=== PATIENT | female | born 1985 | race Caucasian/White ===

== ENCOUNTER 2017-10-14 02:45 | Inpatient (IN) | payer BC ==
[2017-10-14 02:51] VITALS: BMI 34.0
[2017-10-14] MEDS ORDERED: ACETAMINOPHEN 1000 MG/100 ML VIAL (NON FORMULARY) IVPB ONE (02:59)
[2017-10-14] MEDS ORDERED: SODIUM CHLORIDE 1,000 ML IV ONE (02:59)
[2017-10-14] MEDS ORDERED: ACETAMINOPHEN INJECTION 100 ML IVPB ONE (03:00)
--- NOTE | 2017-10-14 03:00 | PDOC ---
History of Present Illness - General Chief Complaint: Headache Stated Complaint: RIBERA Time Seen by Provider: 10/14/17 02:52 History Source: Patient Exam Limitations: No Limitations - History of Present Illness Initial Comments: 10/14/17 03:35 This is a 31-year-old female who comes in complaining of severe headache 2 days. Patient also was febrile here in the emergency room to 101.6. Patient denies any nausea vomiting or diarrhea. Patient denies any chest pain shortness of breath cough congestion. Patient denies any urinary complaints. Patient has been taking Tylenol Motrin for the headache without relief. Patient is otherwise healthy. Patient was at an urgent care center earlier today and diagnosed with sinusitis and given amoxicillin. Patient has taken one dose of her amoxicillin. PAST MEDICAL HISTORY: no significant history PAST SURGICAL HISTORY: no significant history FAMILY HISTORY: no pertinant history SOCIAL HISTORY: Pt lives with family and is employed. MEDICATIONS: reviewed ALLERGIES: As per nursing notes Review of Systems General: No fevers or chills, no weakness, no weight loss HEENT: No change in vision. No sore throat,. No ear pain CardioVascular: No chest pain or shortness of breath Respiratory:No cough, or wheezing. Gastrointestinal: no nausea, vomitting, diarrhea or constipation, No rectal bleeding Genitourinary: No dysuria, hematuria, or frequency Musculoskeletal: No joint or muscle pain or swelling Neurologic: No headache, vertigo, dizziness or loss of consciousness Psychiatric: nor depression Skin: No rashes or easy bruising Endocrine: no increased thirst or abnormal weight change Allergic: no skin or latex allergy All other systems reviewed and normal Exam: General: Well-nourished well-developed individual, no acute distress HEENT: Throat: Normal, tonsils normal, no erythema or exudate, There is some mild tenderness on palpation of the frontal sinuses Neck: Supple, no meningeal signs, no lymphadenopathy Eyes::Pupils equal reactive and round, extraocular motion intact Chest: Nontender to palpation Cardiac: S1-S2 normal, regular rate and rhythm, no murmurs rubs or gallops Respiratory: Lungs clear to auscultation bilateral Abdomen: Soft, nondistended, normal bowel sounds, nontender to palpation diffusely Extremities: Warm, dry, no cyanosis, clubbing, or edema Skin: No rashes Neuro: Alert and oriented x3, CN II - XII intact, nonfocal exam with normal strength, normal sensation, normal reflexes, normal gait, Psych: Normal mood and affect Medical decision-making This is a 31-year-old female with headache and fever. Patient does have some tenderness over her frontal sinuses. We'll obtain CT of sinuses and head as well as blood cultures and CBC and comp. We will reassess and the reevaluate. 05:00 Patient is had her CT. Headache is still present with minimal improvement after the Tylenol. Patient has no meningeal signs. Patient may need LP if head CT is negative and she does not improve 06:30 Patient remains unchanged head CT is negative for any acute pathology including normal sinuses so there is no sinusitis that can account for her symptoms. Will obtain LP as patient continues to have a headache Patient's white count was normal the rest of her lab was normal with the exception of a very mild elevation of her LFTs. 10/14/17 07:04 Procedure note lumbar puncture Patient was positioned in the lateral position landmarks were identified and area was cleaned with Betadine Lumbar puncture was performed using sterile technique without difficulty Opening pressure was greater than 56 Total of approximately 10 mL of spinal fluid was obtained Fluid was clear and colorless Patient tolerated procedure well area was cleaned and it was applied and patient was told to stop a flat on her back. Care of this patient was transferred to Dr. Ansari at 7 AM. Patient will be admitted to an inpatient 10/14/17 07:07 Case discussed in detail with oncoming Emergency Physician including history, physical exam and ancillary studies. Oncoming Emergency Physician has assumed care for the patient and will complete the evaluation and treatment. Patient is aware of the plan. Pt is clinically unchanged and stable. Past History - Past Medical History Allergies/Adverse Reactions: Allergies Allergy/AdvReac Type Severity Reaction Status Date / Time No Known Allergies Allergy Unverified 10/14/17 02:47 Home Medications: Ambulatory Orders Amoxicillin - [Amoxicillin 500mg Capsule -] 500 mg PO BID 10/14/17 Acetaminophen/Caffeine/Butalb [Fioricet -] 1 tablet PO Q6H PRN #28 tablet MDD 4 10/15/17 Famotidine [Pepcid -] 20 mg PO BID tablet 10/15/17 COPD: No - Suicide/Smoking/Psychosocial Hx Smoking History: Never smoked Have you smoked in the past 12 months: No Number of Cigarettes Smoked Daily: 0 Information on smoking cessation initiated: No Hx Alcohol Use: No Drug/Substance Use Hx: No Substance Use Type: None *Physical Exam - Vital Signs Last Vital Signs Temp Pulse Resp BP Pulse Ox 101.6 F H 110 H 15 151/100 98 10/14/17 02:46 10/14/17 02:46 10/14/17 02:46 10/14/17 02:46 10/14/17 02:46 ED Treatment Course - LABORATORY CBC & Chemistry Diagram: 10/15/17 07:45 10/15/17 07:45 *DC/Admit/Observation/Transfer Diagnosis at time of Disposition: Meningitis Headache Qualifiers: Headache type: unspecified Headache chronicity pattern: acute headache Intractability: not intractable Qualified Code(s): R51 - Headache Fever Qualifiers: Fever type: unspecified Qualified Code(s): R50.9 - Fever, unspecified - Discharge Dispostion Condition at time of disposition: Improved - Prescriptions - Referrals - Patient Instructions - Post Discharge Activity
[2017-10-14] MEDS ORDERED: PIPERACILLIN/TAZOB 4.5 GM 4.5 GM in DEXTROSE 5%-WATER 100 ML IVPB ONE (03:03)
[2017-10-14] MEDS ORDERED: PIPERACILLIN/TAZOBACTAM 4.5 GM VIAL IVPB ONE (03:19)
[2017-10-14 03:51] LABS: BASO % 0.5 % (0-2.0); EOS % 1.1 % (0-4.5); HEMOGLOBIN 14.9 GM/dL (10.7-15.3); LYMPH % 15.6 % (8-40); MCH 29.1 pg (25.7-33.7); MCHC 34.7 g/dl (32.0-36.0); MEAN CELL VOLUME 83.7 fl (80-96); MEAN PLT VOLUME 7.5 fl (7.5-11.1); MONO % 11.6 % (3.8-10.2); NEUT % 71.2 % (42.8-82.8); PLATELET COUNT 220 K/MM3 (134-434); RBC 5.14 M/mm3 (3.60-5.2); RDW 13.4 % (11.6-15.6); WHITE BLOOD COUNT 6.5 K/mm3 (4.0-10.0)
[2017-10-14 04:00] LABS: URINE APPEARANCE SLCLOUDY; URINE BILIRUBIN NEGATIVE (<2.0 mg/dL); URINE COLOR DKYELLOW; URINE GLUCOSE (UA) NEGATIVE (NEGATIVE); URINE KETONE TRACE (NEGATIVE); URINE LEUK ESTERASE NEGATIVE (NEGATIVE); URINE NITRITE NEGATIVE (NEGATIVE); URINE UROBILINOGEN 4.0 E.U/dl mg/dL (0.2-1.0)
[2017-10-14 04:01] LABS: URINE PROTEIN 1+ (NEGATIVE)
[2017-10-14 04:02] LABS: EPI CELLS FEW /HPF (FEW)
[2017-10-14 05:25] LABS: ALBUMIN 3.5 g/dl (3.4-5.0); ALK PHOS 95 U/L (45-117); ANION GAP 8 (8-16); BILIRUBIN,TOTAL 0.4 mg/dL (0.2-1.0); BLOOD UREA NITROGEN 9 mg/dL (7-18); CALCIUM 7.9 mg/dL (8.5-10.1); CHLORIDE 104 mmol/L (98-107); CO2 26 mmol/L (21-32); CREATININE 0.6 mg/dL (0.55-1.02); GLUCOSE,RANDOM 101 mg/dL (74-106); SGPT/ALT 83 U/L (12-78); SODIUM 138 mmol/L (136-145); TOT PROT 7.1 g/dl (6.4-8.2)
[2017-10-14 05:41] LABS: POTASSIUM 4.2 mmol/L (3.5-5.1)
[2017-10-14 05:42] LABS: SGOT/AST 68 U/L (15-37)
[2017-10-14] MEDS ORDERED: KETOROLAC TROMETHAMINE 30 MG/1 ML VIAL IVPUSH ONE (06:37)
[2017-10-14] MEDS ORDERED: KETOROLAC TROMETHAMINE 30 MG/1 ML VIAL ONE (06:38)
[2017-10-14] MEDS ORDERED: CEFTRIAXONE 2,000 MG in DEXTROSE 5%-WATER - 50 ML IVPB ONE (07:06)
--- NOTE | 2017-10-14 07:15 | PDOC ---
*Physical Exam - Vital Signs Last Vital Signs Temp Pulse Resp BP Pulse Ox 97.7 F 88 14 140/85 98 10/14/17 07:06 10/14/17 07:06 10/14/17 07:06 10/14/17 07:06 10/14/17 07:06 ED Treatment Course - LABORATORY CBC & Chemistry Diagram: 10/14/17 03:18 10/14/17 03:18 - ADDITIONAL ORDERS Additional order review: Laboratory Results 10/14/17 10/14/17 10/14/17 03:18 03:18 03:18 Sodium 138 Potassium 4.2 Chloride 104 Carbon Dioxide 26 Anion Gap 8 BUN 9 Creatinine 0.6 Creat Clearance w eGFR > 60 Random Glucose 101 Calcium 7.9 L Total Bilirubin 0.4 AST 68 H ALT 83 H Alkaline Phosphatase 95 Total Protein 7.1 Albumin 3.5 Urine Color Dkyellow Urine Appearance Slcloudy Urine pH 6.0 Ur Specific [place] 1.027 Urine Protein 1+ H Urine Glucose (UA) Negative Urine Ketones Trace H Urine Blood 1+ H Urine Nitrite Negative Urine Bilirubin Negative Urine Urobilinogen 4.0 e.u/dl H Ur Leukocyte Esterase Negative Urine WBC (Auto) 2 Urine RBC (Auto) 13 Ur Epithelial Cells Few Urine HCG, Qual Negative 10/14/17 03:18 RBC 5.14 MCV 83.7 MCHC 34.7 RDW 13.4 MPV 7.5 Neutrophils % 71.2 Lymphocytes % 15.6 Monocytes % 11.6 H Eosinophils % 1.1 Basophils % 0.5 - Medications Given in the ED: ED Medications Discontinued Medications Generic Name Dose Route Start Last Admin Trade Name Tamiko PRN Reason Stop Dose Admin Acetaminophen 1,000 mg 10/14/17 02:59 10/14/17 03:17 Ofirmev Injection - IVPB 10/14/17 03:00 1,000 mg ONCE ONE Administration Sodium Chloride 1,000 mls @ 1,000 mls/hr 10/14/17 02:59 10/14/17 03:10 Normal Saline - IV 10/14/17 03:58 1,000 mls/hr .Q1H ONE Administration Piperacillin Sod/Tazobactam 100 mls @ 200 mls/hr 10/14/17 03:03 10/14/17 03: 10 Sod 4.5 gm/ Dextrose IVPB 10/14/17 03:32 200 mls/hr ONCE ONE Administration Protocol Ketorolac Tromethamine 30 mg 10/14/17 06:37 10/14/17 07:13 Toradol Injection - IVPUSH 10/14/17 06:38 30 mg ONCE ONE Administration Medical Decision Making - Medical Decision Making 10/14/17 07:24 Pt signed out to me by Dr. Nation at shift change. She presented with 101.6 fever and headache, had extremely high opening pressure on LP, fluid was clear. Suspected meningitis, pending admission to hospitalist. Case d/w Dr. Grossman. Will evaluate patient. 10/14/17 07:55 Pt accepted by hospitalist for admission. *DC/Admit/Observation/Transfer Diagnosis at time of Disposition: Meningitis Headache Qualifiers: Headache type: unspecified Headache chronicity pattern: acute headache Intractability: not intractable Qualified Code(s): R51 - Headache Fever Qualifiers: Fever type: unspecified Qualified Code(s): R50.9 - Fever, unspecified - Discharge Dispostion Condition at time of disposition: Stable Decision to Admit order: Yes - Referrals - Patient Instructions - Post Discharge Activity
[2017-10-14] MEDS ORDERED: cefTRIAXone SODIUM 1 GM VIAL ONE (07:40)
[2017-10-14 08:59] LABS: CSF APPEARANCE CLEAR; CSF COLOR COLORLESS; CSF WBC 1
--- NOTE | 2017-10-14 09:10 | HP ---
CHIEF COMPLAINT: headache and fever PCP: none HISTORY OF PRESENT ILLNESS: Patient is a 31 y/o obese female with a past medical history of migraines. Patient reports ongoing headache for the past 2 days. She described the pain a squeezing sensation to the right side of the head. She first attributed to these symptoms to her sinus and was evaluated at a local urgent care and was started on amoxicillin. Patient reports taking amoxicillin for 24 hours no significant relief. Patient reports the headache persisted yesterday and worsened during positional changes. She was re- evaluated at urgent care and was referred to the emergency department for further evaluation. 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[employer], ( ) Smoking:none Alcohol:none Drugs: none Family History: father : PE mother: alive and well Allergies No Known Allergies Allergy (Unverified 10/14/17 02:47) HOME MEDICATIONS: Home Medications Medication Instructions Recorded Amoxicillin - [Amoxicillin 500mg 500 mg PO BID 10/14/17 Capsule -] REVIEW OF SYSTEMS CONSTITUTIONAL: present: fever Absent: chills, diaphoresis, generalized weakness, malaise, loss of appetite, weight change HEENT: Absent: rhinorrhea, nasal congestion, throat pain, throat swelling, difficulty swallowing, mouth swelling, ear pain, eye pain, visual changes CARDIOVASCULAR: Absent: chest pain, syncope, palpitations, irregular heart rate, lightheadedness , peripheral edema RESPIRATORY: Absent: cough, shortness of breath, dyspnea with exertion, orthopnea, wheezing, stridor, hemoptysis GASTROINTESTINAL: Absent: abdominal pain, abdominal distension, nausea, vomiting, diarrhea, constipation, melena, hematochezia GENITOURINARY: Absent: dysuria, frequency, urgency, hesitancy, hematuria, flank pain, genital pain MUSCULOSKELETAL: Absent: myalgia, arthralgia, joint swelling, back pain, neck pain SKIN: Absent: rash, itching, pallor HEMATOLOGIC/IMMUNOLOGIC: Absent: easy bleeding, easy bruising, lymphadenopathy, frequent infections ENDOCRINE: Absent: unexplained weight gain, unexplained weight loss, heat intolerance, cold intolerance NEUROLOGIC: Present: headache Absent: focal weakness or paresthesias, dizziness, unsteady gait, seizure, mental status changes, bladder or bowel incontinence PSYCHIATRIC: Absent: anxiety, depression, suicidal or homicidal ideation, hallucinations. PHYSICAL EXAMINATION Vital Signs - 24 hr 10/14/17 10/14/17 02:46 07:06 Temperature 101.6 F H 97.7 F Pulse Rate 110 H Pulse Rate [ 88 Right Radial] Respiratory 15 14 Rate Blood Pressure 151/100 Blood Pressure 140/85 [Left Arm] O2 Sat by Pulse 98 98 Oximetry (%) GENERAL: Awake, alert, and fully oriented, in no acute distress. HEAD: Normal with no signs of trauma. EYES: Pupils equal, round and reactive to light, extraocular movements intact, sclera anicteric, conjunctiva clear. No lid lag. EARS, NOSE, THROAT: Ears normal, nares patent, oropharynx clear without exudates. Moist mucous membranes. NECK: Normal range of motion, supple without lymphadenopathy, JVD, or masses. LUNGS: Breath sounds equal, clear to auscultation bilaterally. No wheezes, and no crackles. No accessory muscle use. HEART: Regular rate and rhythm, normal S1 and S2 without murmur, rub or gallop. ABDOMEN: Soft, nontender, not distended, normoactive bowel sounds, no guarding, no rebound, no masses. No hepatomegaly or splenomegaly. MUSCULOSKELETAL: Normal range of motion at all joints. No bony deformities or tenderness. No CVA tenderness. UPPER EXTREMITIES: 2+ pulses, warm, well-perfused. No cyanosis. No clubbing. No peripheral edema. LOWER EXTREMITIES: 2+ pulses, warm, well-perfused. No calf tenderness. No peripheral edema. NEUROLOGICAL: negative kernig's sign, negative brudzinski, Cranial nerves II- XII intact. Normal speech. Normal gait. PSYCHIATRIC: Cooperative. Good eye contact. Appropriate mood and affect. SKIN: Warm, dry, normal turgor, no rashes or lesions noted, normal capillary refill. Laboratory Results - last 24 hr 10/14/17 10/14/17 10/14/17 03:18 03:18 03:18 WBC 6.5 RBC 5.14 Hgb 14.9 Hct 43.0 MCV 83.7 MCH 29.1 MCHC 34.7 RDW 13.4 Plt Count 220 MPV 7.5 Neutrophils % 71.2 Lymphocytes % 15.6 Monocytes % 11.6 H Eosinophils % 1.1 Basophils % 0.5 Sodium 138 Potassium 4.2 Chloride 104 Carbon Dioxide 26 Anion Gap 8 BUN 9 Creatinine 0.6 Creat Clearance w eGFR > 60 Random Glucose 101 Calcium 7.9 L Total Bilirubin 0.4 AST 68 H ALT 83 H Alkaline Phosphatase 95 Total Protein 7.1 Albumin 3.5 Urine Color Dkyellow Urine Appearance Slcloudy Urine pH 6.0 Ur Specific [place] 1.027 Urine Protein 1+ H Urine Glucose (UA) Negative Urine Ketones Trace H Urine Blood 1+ H Urine Nitrite Negative Urine Bilirubin Negative Urine Urobilinogen 4.0 e.u/dl H Ur Leukocyte Esterase Negative Urine WBC (Auto) 2 Urine RBC (Auto) 13 Ur Epithelial Cells Few Urine HCG, Qual CSF Appearance CSF Color CSF WBC CSF RBC CSF Neutrophils CSF Lymphocytes CSF Eosinophils CSF Basophils CSF Macrophages CSF Plasma Cells CSF Diff Comment CSF Comment 10/14/17 10/14/17 03:18 07:07 WBC RBC Hgb Hct MCV MCH MCHC RDW Plt Count MPV Neutrophils % Lymphocytes % Monocytes % Eosinophils % Basophils % Sodium Potassium Chloride Carbon Dioxide Anion Gap BUN Creatinine Creat Clearance w eGFR Random Glucose Calcium Total Bilirubin AST ALT Alkaline Phosphatase Total Protein Albumin Urine Color Urine Appearance Urine pH Ur Specific [place] Urine Protein Urine Glucose (UA) Urine Ketones Urine Blood Urine Nitrite Urine Bilirubin Urine Urobilinogen Ur Leukocyte Esterase Urine WBC (Auto) Urine RBC (Auto) Ur Epithelial Cells Urine HCG, Qual Negative CSF Appearance Clear CSF Color Colorless CSF WBC 1 CSF RBC 0 CSF Neutrophils No Result Required. CSF Lymphocytes No Result Required. CSF Eosinophils No Result Required. CSF Basophils No Result Required. CSF Macrophages No Result Required. CSF Plasma Cells No Result Required. CSF Diff Comment No Result Required. CSF Comment No Result Required. ASSESSMENT/PLAN: 1) neuro r/o meningitis - LP completed in ED, elevated opening pressures, pending cultures, rocephin, zosyn, given this AM - no leukocytois patient is afebrile, monitor cbc and fever curve - pending urine and blood cultures - lyme's titers ordered - appreciate neurology and ID consult f/e/n - regular diet - replete lytes prn ppx - oob - scd dispo: pt requires inpatient admission Visit type - Emergency Visit Emergency Visit: Yes ED Registration Date: 10/14/17 Care time: The patient presented to the Emergency Department on the above date and was hospitalized for further evaluation of their emergent condition. - New Patient This patient is new to me today: Yes Date on this admission: 10/15/17 - Critical Care Critical Care patient: No Hospitalist Screening - Colonoscopy Questionnaire Colonoscopy Questionnaire: Colonoscopy Questionnaire - Patient: 50 - 75 years old and never had a screening colonoscopy: No History of colon or rectal polyps, or CA: No History of IBD, Crohn's disease or UC: No History of abdominal radiation therapy as a child: No - Relative: 1 with colon or rectal CA, or polyps at age 60 or younger: No Colon or rectal CA diagnosed at age 45 or younger: No Multiple relatives with colon or rectal CA: No - Outcome: Screening Result: Negative Screen
[2017-10-14] MEDS ORDERED: ACETAMINOPHEN 325 MG TABLET (FP) PO PRN (09:44)
[2017-10-14 09:52] LABS: GLUCOSE,CSF 60 mg/dL (50-80)
[2017-10-14] MEDS: FAMOTIDINE 20 MG TABLET PO SCH ×2 (10:46→21:35)
[2017-10-14] MEDS ORDERED: ONDANSETRON 4 MG/2 ML VIAL IVPUSH PRN (10:57)
--- NOTE | 2017-10-14 18:03 | CONSULT ---
Consult - text type - Consultation Consultation Note: Neurology History of Present Illness Chief Complaint: Headache Stated Complaint: RIBERA - History of Present Illness Initial Comments: This is a 31-year-old female who comes in complaining of severe headache 2 days. Patient also was febrile here in the emergency room to 101.6. Patient denied any nausea vomiting or diarrhea. Patient denies any chest pain shortness of breath cough congestion. Patient denies any urinary complaints. Patient has been taking Tylenol Motrin for the headache without relief. Patient is otherwise healthy. She complainted of neck and with headache and fever there was concern for meningitis. ER contacted me in AM. LP completed and 1 WBC ( essentially normal), normal protein and normal glucose in CSF. She was given emperic abx but does not seem consistent with meningitis. Is moving her neck without stiffness but does have some discomfort. Photophobia also noted. Possibly migranous though no past history of migraines. CT head completed and no acute changes. Discussed MRI brain with her but patient will defer as CT without acute changes and no deficits. PAST MEDICAL HISTORY: no significant history PAST SURGICAL HISTORY: no significant history FAMILY HISTORY: no pertinant history SOCIAL HISTORY: Pt lives with family and is employed. MEDICATIONS: reviewed ALLERGIES: As per nursing notes Review of Systems General: fevers ongoing, no weakness, no weight loss HEENT: No change in vision. No sore throat,. No ear pain CardioVascular: No chest pain or shortness of breath Respiratory:No cough, or wheezing. Gastrointestinal: no nausea, vomitting, diarrhea or constipation, No rectal bleeding Genitourinary: No dysuria, hematuria, or frequency Musculoskeletal: No joint or muscle pain or swelling Neurologic: Active headache, no vertigo, dizziness or loss of consciousness Psychiatric: nor depression Skin: No rashes or easy bruising Endocrine: no increased thirst or abnormal weight change Allergic: no skin or latex allergy All other systems reviewed and normal Vital Signs Period Temp Pulse Resp BP Sys/Becerra Pulse Ox Last 24 Hr 97.7 F-101.6 F 85-110 14-18 137-169/82-100 97-98 Exam: General: Well-nourished well-developed individual, no acute distress HEENT: Throat: Normal, tonsils normal, no erythema or exudate, There is some mild tenderness on palpation of the frontal sinuses Neck: Supple, no meningeal signs, no lymphadenopathy Eyes::Pupils equal reactive and round, extraocular motion intact Chest: Nontender to palpation Cardiac: S1-S2 normal, regular rate and rhythm, no murmurs rubs or gallops Respiratory: Lungs clear to auscultation bilateral Abdomen: Soft, nondistended, normal bowel sounds, nontender to palpation diffusely Extremities: Warm, dry, no cyanosis, clubbing, or edema Skin: No rashes Neuro: Alert and oriented x3, CN II - XII intact, nonfocal exam with normal strength, normal sensation, normal reflexes, normal gait, photophobia noted Psych: Normal mood and affect CBCD WBC 6.5 K/mm3 (4.0-10.0) 10/14/17 03:18 RBC 5.14 M/mm3 (3.60-5.2) 10/14/17 03:18 Hgb 14.9 GM/dL (10.7-15.3) 10/14/17 03:18 Hct 43.0 % (32.4-45.2) 10/14/17 03:18 MCV 83.7 fl (80-96) 10/14/17 03:18 MCHC 34.7 g/dl (32.0-36.0) 10/14/17 03:18 RDW 13.4 % (11.6-15.6) 10/14/17 03:18 Plt Count 220 K/MM3 (134-434) 10/14/17 03:18 MPV 7.5 fl (7.5-11.1) 10/14/17 03:18 CMP Sodium 138 mmol/L (136-145) 10/14/17 03:18 Potassium 4.2 mmol/L (3.5-5.1) 10/14/17 03:18 Chloride 104 mmol/L (98-107) 10/14/17 03:18 Carbon Dioxide 26 mmol/L (21-32) 10/14/17 03:18 Anion Gap 8 (8-16) 10/14/17 03:18 BUN 9 mg/dL (7-18) 10/14/17 03:18 Creatinine 0.6 mg/dL (0.55-1.02) 10/14/17 03:18 Creat Clearance w eGFR > 60 (>60) 10/14/17 03:18 Calcium 7.9 mg/dL (8.5-10.1) L 10/14/17 03:18 Total Bilirubin 0.4 mg/dL (0.2-1.0) 10/14/17 03:18 AST 68 U/L (15-37) H 10/14/17 03:18 ALT 83 U/L (12-78) H 10/14/17 03:18 Alkaline Phosphatase 95 U/L (45-117) 10/14/17 03:18 Total Protein 7.1 g/dl (6.4-8.2) 10/14/17 03:18 Albumin 3.5 g/dl (3.4-5.0) 10/14/17 03:18 CT head reviewed CSF reviewed Medical decision-making 31-year-old female who comes in complaining of severe headache 2 days. Patient also was febrile here in the emergency room to 101.6. She complainted of neck and with headache and fever there was concern for meningitis. ER contacted me in AM. LP completed and 1 WBC (essentially normal), normal protein and normal glucose in CSF. She was given emperic abx but does not seem consistent with meningitis. Is moving her neck without stiffness but does have some discomfort. Photophobia also noted. Possibly migranous though no past history of migraines. CT head completed and no acute changes. Discussed MRI brain with her but patient will defer as CT without acute changes and no deficits. D/ruth tyenol and added fioricet for possible migraine. Hydration and rest recommended. Avoid bright lights and loud room. Continue PO/IV hydration. ID consulted. No further rec'd at this time.
--- NOTE | 2017-10-14 19:30 | PN ---
Progress Note (short form) - Note Progress Note: ID Consult dictated No evidence for meningitis Observe off antibiotics D/C isolation Outpatient follow up
[2017-10-14] MEDS: ACETAMINOPHEN/CAFFEINE/BUTALBITAL 1 TAB PO PRN (21:35)
[2017-10-15] MEDS: ACETAMINOPHEN/CAFFEINE/BUTALBITAL 1 TAB PO PRN (04:00)
[2017-10-15 06:56] VITALS: BP 153/90; PULSE 100; TEMP 99.7
[2017-10-15 08:08] LABS: BASO % 0.8 % (0-2.0); EOS % 0.5 % (0-4.5); HEMATOCRIT 43.1 % (32.4-45.2); HEMOGLOBIN 14.5 GM/dl (10.7-15.3); LYMPH % 18.6 % (8-40); MCH 28.3 pg (25.7-33.7); MCHC 33.7 g/dl (32.0-36.0); MEAN CELL VOLUME 83.9 fl (80-96); MEAN PLT VOLUME 7.1 fl (7.5-11.1); MONO % 8.8 % (3.8-10.2); NEUT % 71.3 % (42.8-82.8); PLATELET COUNT 267 K/MM3 (134-434); RBC 5.14 M/mm3 (3.60-5.2); RDW 12.7 % (11.6-15.6); WHITE BLOOD COUNT 9.2 K/mm3 (4.0-10.8)
[2017-10-15 08:28] LABS: ALBUMIN 3.5 g/dl (3.5-5.0); ALK PHOS 74 U/L (32-92); ANION GAP 7 (8-16); BILIRUBIN,TOTAL 0.5 mg/dl (0.2-1.0); BLOOD UREA NITROGEN 7 mg/dl (7-18); CALCIUM 8.4 mg/dl (8.4-10.2); CHLORIDE 102 mmol/L (98-107); CO2 26 mmol/L (22-28); GLUCOSE,RANDOM 104 mg/dl (74-106); MAGNESIUM 2.1 mg/dL (1.8-2.4); PHOSPHOROUS 3.5 mg/dl (2.5-4.6); POTASSIUM 3.8 mmol/L (3.5-5.1); SGOT/AST 41 U/L (10-42); SGPT/ALT 66 U/L (10-40); SODIUM 135 mmol/L (136-145); TOT PROT 6.6 g/dl (6.4-8.3)
[2017-10-15 08:34] LABS: CREATININE < 0.8 mg/dl (0.6-1.3)
[2017-10-15] MEDS ORDERED: MAGNESIUM SULF 50% (8.12 MEQ/2 ML-1 GM VIAL) IVPB ONE (09:00)
--- NOTE | 2017-10-15 09:01 | DS ---
Physical Exam: SUBJECTIVE: Patient seen and examined, denies any tactile fevers, reports resolution of headache OBJECTIVE: Patient is a 31 y/o obese female with a past medical history of migraines. Patient reports ongoing headache for the past 2 days. She described the pain a squeezing sensation to the right side of the head. She first attributed to these symptoms to her sinus and was evaluated at a local urgent care and was started on amoxicillin. Patient reports taking amoxicillin for 24 hours no significant relief. Patient reports the headache persisted yesterday and worsened during positional changes. She was re-evaluated at urgent care and was referred to the emergency department for further evaluation. ER course was notable for: (1)tmax of 101.6 (2)LP completed in ED by ED physician, opening pressure 56 (3)wbc 6.5 Vital Signs Period Temp Pulse Resp BP Sys/Becerra Pulse Ox Last 24 Hr 98.3 F-99.7 F 85-100 18-18 137-169/82-97 96-98 PHYSICAL EXAM GENERAL: Awake, alert, and fully oriented, in no acute distress. HEAD: Normal with no signs of trauma. EYES: Pupils equal, round and reactive to light, extraocular movements intact, sclera anicteric, conjunctiva clear. No lid lag. EARS, NOSE, THROAT: Ears normal, nares patent, oropharynx clear without exudates. Moist mucous membranes. NECK: Normal range of motion, supple without lymphadenopathy, JVD, or masses. LUNGS: Breath sounds equal, clear to auscultation bilaterally. No wheezes, and no crackles. No accessory muscle use. HEART: Regular rate and rhythm, normal S1 and S2 without murmur, rub or gallop. ABDOMEN: Soft, nontender, not distended, normoactive bowel sounds, no guarding, no rebound, no masses. No hepatomegaly or splenomegaly. MUSCULOSKELETAL: Normal range of motion at all joints. No bony deformities or tenderness. No CVA tenderness. UPPER EXTREMITIES: 2+ pulses, warm, well-perfused. No cyanosis. No clubbing. No peripheral edema. LOWER EXTREMITIES: 2+ pulses, warm, well-perfused. No calf tenderness. No peripheral edema. NEUROLOGICAL: negative kernig's sign, negative brudzinski, Cranial nerves II- XII intact. Normal speech. Normal gait. PSYCHIATRIC: Cooperative. Good eye contact. Appropriate mood and affect. SKIN: Warm, dry, normal turgor, no rashes or lesions noted, normal capillary refill. LABS Laboratory Results - last 24 hr 10/14/17 10/15/17 10/15/17 07:07 07:45 07:45 WBC 9.2 RBC 5.14 Hgb 14.5 Hct 43.1 MCV 83.9 MCH 28.3 MCHC 33.7 RDW 12.7 Plt Count 267 MPV 7.1 L Neutrophils % 71.3 Lymphocytes % 18.6 Monocytes % 8.8 Eosinophils % 0.5 Basophils % 0.8 Sodium 135 L Potassium 3.8 Chloride 102 Carbon Dioxide 26 Anion Gap 7 L BUN 7 Creatinine < 0.8 Creat Clearance w eGFR > 60 Random Glucose 104 Calcium 8.4 Phosphorus 3.5 Magnesium 2.1 Total Bilirubin 0.5 AST 41 ALT 66 H Alkaline Phosphatase 74 Total Protein 6.6 Albumin 3.5 CSF Glucose 60 CSF Total Protein 17 Microbiology 10/14/17 03:18 Urine - Urine Clean Catch Urine Culture - Final NO GROWTH OBTAINED 10/14/17 07:07 Cerebral Spinal Fluid - Lumbar Puncture Gram Stain - Final 10/14/17 07:07 Cerebral Spinal Fluid - Lumbar Puncture CSF Culture - Preliminary 10/14/17 03:18 Blood - Peripheral Venous Blood Culture - Preliminary NO GROWTH OBTAINED AFTER 24 HOURS, INCUBATION TO CONTINUE FOR 4 DAYS. HOSPITAL COURSE: Patient was admitted from the emergency department for r/o meningitis. LP completed in ED, elevated opening pressures, cultures negative patient was treated with rocephin and zosyn. No leukocytis patient is afebrile. lyme's titers pending. Headaches consistent with migraines, patient was given fiorcet with relief. Dr Grossman, neurology and Dr Barbour, ID was consulted and followed. PLAN - discharge home with fiorcet - follow up with neurology within 2 weeks - return precautions reviewed Date of Admission:10/14/17 Date of Discharge: 10/15/17 Minutes to complete discharge: 45 Discharge Summary Reason For Visit: HEADACHE/FEVER/MENINGITIS Current Active Problems Fever (Acute) Headache (Acute) Meningitis (Acute) Condition: Improved - Instructions Diet, Activity, Other Instructions: continue fiorcet for headache as needed please follow up with the neurologist within 2 weeks if any new or persistent symptoms develop please return to the emergency department. Referrals: Dayo Grossman MD [Staff Physician] - Disposition: HOME - Home Medications Comprehensive Discharge Medication List: Ambulatory Orders Amoxicillin - [Amoxicillin 500mg Capsule -] 500 mg PO BID 10/14/17 This patient is new to me today: No Emergency Visit: Yes ED Registration Date: 10/14/17 Care time: The patient presented to the Emergency Department on the above date and was hospitalized for further evaluation of their emergent condition. Critical Care patient: No - Discharge Referral Referred to [facility] No
[2017-10-15] MEDS ORDERED: KETOROLAC TROMETHAMINE 30 MG/1 ML VIAL IVPUSH ONE (09:30)
[2017-10-15] MEDS ORDERED: MAGNESIUM 1GM/D5W - 1 GM/100 ML IVPB IVPB ONE (09:30)
[2017-10-15] MEDS ORDERED: METOCLOPRAMIDE HCL INJECTION 10 MG/2 ML VIAL IVPUSH ONE (09:30)
[2017-10-15] MEDS: FAMOTIDINE 20 MG TABLET PO SCH (09:42)
== END 2017-10-15 11:00 | disposition home or self-care (01) | DRG 99 ==
LOC: FER 02:45 → FM/S 08:25
PROVIDERS: ADMIT Hospitalist; ATTEND Nurse Practitioner Family
PROC: 009U3ZX Drainage of Spinal Canal, Percutaneous Approach, Diagnostic (ICD-10-PCS; principal; 2017-10-14)
DX: G03.9 Meningitis, unspecified (principal); E66.9 Obesity, unspecified; Z68.34 Body mass index [BMI] 34.0-34.9, adult
CPT/HCPCS: 36415; 70450-TC; 70486-TC; 80053; 81003; 81015; 82945; 83735; 84100; 84157; 84703; 85025; 86618; 87040; 87070; 87086; 87205; 87252; 99283-25; J0131; J7030